=== PATIENT | male | born 1940 | race Caucasian/White ===

== ENCOUNTER 2024-07-10 13:18 | Emergency (ER) | payer MEDICARE, BC ==
[2024-07-10] MEDS ORDERED: Sodium Chloride 0.9% 10 ML Syringe FLUSH PRN (13:40)
[2024-07-10 13:45] LABS: BASOPHILS PERCENT AUTO 0.4 % (0.0-1.0); EOSINOPHILS PERCENT AUTO 0.9 % (0.0-6.0); HEMATOCRIT 34.7 % (42.0-52.0); HEMOGLOBIN 12.4 gm/dl (14.0-18.0); IMMATURE GRAN ABSOLUTE AUTO 0.05 K/mm3 (0.00-0.05); IMMATURE GRAN PERCENT AUTO 1.1 % (0.0-0.4); LYMPHOCYTES PERCENT AUTO 22.9 % (24.0-44.0); MEAN CORPUSCULAR HEMOGLOBIN 35.3 pg (28.0-32.0); MEAN CORPUSCULAR HGB CONC 35.7 g/dl (32.0-36.0); MEAN CORPUSCULAR VOLUME 98.9 fl (83.0-99.0); MEAN PLATELET VOLUME 11.1 fl (9.4-12.4); MONOCYTES ABSOLUTE AUTO 0.4 K/mm3 (0.0-0.8); MONOCYTES PERCENT AUTO 9.2 % (0.0-8.0); NEUTROPHILS ABSOLUTE AUTO 2.9 K/mm3 (1.8-7.7); NEUTROPHILS PERCENT AUTO 65.5 % (41.0-71.0); PLATELET COUNT,PLT 139 K/mm3 (150-400); RED BLOOD CELL COUNT 3.51 M/mm3 (4.52-5.90); WHITE BLOOD CELL COUNT,WBC 4.46 K/mm3 (3.9-11.3)
[2024-07-10] MEDS: Meclizine 25 MG Tab PO ONE (13:47)
[2024-07-10] MEDS: Ondansetron 4 MG/2 ML SDV IVPUSH ONE (13:47)
[2024-07-10] MEDS: Sodium Chloride 0.9% 500 ML IV ONE (13:51)
[2024-07-10 14:04] LABS: INR 0.98; PROTHROMBIN TIME 10.4 SECONDS (9.7-12.0)
[2024-07-10 14:05] LABS: PTT,PARTIAL THROMBOPLSTIN TIME 21.4 SECONDS (21.7-31.4)
[2024-07-10 14:07] LABS: A/G RATIO 1.2 (1-2); ALANINE AMINOTRANSFERASE,ALT 24 U/L (16-63); ALBUMIN 3.7 g/dl (3.4-5.0); ALKALINE PHOSPHATASE 95 U/L (46-116); ANION GAP 16.2 (5-15); ASPARTATE AMNIOTRANSFERASE,AST 4 U/L (15-37); BILIRUBIN TOTAL 0.6 mg/dL (0.2-1.0); BLOOD UREA NITROGEN,BUN 22 mg/dL (7-18); BUN/CREATININE RATIO 14.7 (14-18); CALCIUM 9.9 mg/dL (8.5-10.1); CARBON DIOXIDE,CO2 27 mEq/L (21-32); CHLORIDE,CL 105 mEq/L (98-107); CREATININE 1.5 mg/dL (0.7-1.3); ESTIMATED GFR 46 mL/min (>60); GLUCOSE RANDOM 147 mg/dL (70-99); MAGNESIUM 1.8 mg/dL (1.8-2.4); POTASSIUM,K 3.2 mEq/L (3.5-5.1); PROTEIN TOTAL,TP 6.8 g/dl (6.4-8.2); SODIUM,NA 145 mEq/L (136-145); TROPONIN I HIGH SENSITIVITY 7 pg/mL (<=76)
[2024-07-10] MEDS: Potassium Chloride 20 MEQ Tab.ER PO ONE (18:03)
== END 2024-07-10 18:07 | disposition home or self-care (01) ==
LOC: JD.ED 13:18
DX: R42 Dizziness and giddiness (principal); E87.6 Hypokalemia; R79.89 Other specified abnormal findings of blood chemistry
CPT/HCPCS: 36415; 70551; 80053; 82947; 83735; 84484; 85025; 85610; 85730; 93005; 96361; 96374; 99284; A9270; J2405; J7030; 93010